=== PATIENT | female | born 1960 | race Caucasian/White ===

== ENCOUNTER 2016-11-19 17:37 | Emergency (ER) | payer MEDICARE ==
[~2016-11-19] VITALS: Ht 170.2 cm; Wt 68.5 kg
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
[~2016-11-19 17:37] MED LIST: ATIVAN PO; BIRTH CONTROL PILLS; DALMANE30 MG PO; PERCOCET PO; PROPRANOLOL PO; PROTONIX PO; SYMBYAX PO
== END 2016-11-19 19:55 | disposition home or self-care (01) ==
LOC: CED 17:37
DX: S32.019A Unspecified fracture of first lumbar vertebra, initial encounter for closed fracture (principal); S93.402A Sprain of unspecified ligament of left ankle, initial encounter; X50.9XXA Other and unspecified overexertion or strenuous movements or postures, initial encounter; Y92.89 Other specified places as the place of occurrence of the external cause; Z88.2 Allergy status to sulfonamides; Z88.8 Allergy status to other drugs, medicaments and biological substances; Z23 Encounter for immunization
CPT/HCPCS: 29405; 71010; 72072; 73610; 90471; 90715; 99284